=== PATIENT | male | born 1950 | race Caucasian/White ===

== ENCOUNTER 2019-04-10 08:39 | Outpatient (CLI) | payer OTHER | END 2019-04-10 23:59 | disposition home or self-care (01) | LOC: ROC 08:39 | PROVIDERS: ATTEND Radiology Radiation Oncology | DX: C61 Malignant neoplasm of prostate (principal); Z79.899 Other long term (current) drug therapy; Z88.0 Allergy status to penicillin | CPT/HCPCS: 99214; G0463 ==

== ENCOUNTER 2019-04-30 07:42 | Outpatient (CLI) | payer OTHER ==
[2019-04-30] MEDS ORDERED: LIDOCAINE/PF 1%, 30ML IV ONE (09:30)
[2019-04-30] MEDS ORDERED: MIDAZOLAM 1 MG/ML, 5ML IVPush ONE (09:30)
[2019-04-30] MEDS ORDERED: FENTANYL PF 100 MCG/2ML IVPush ONE (09:30)
== END 2019-04-30 23:59 | disposition home or self-care (01) ==
LOC: ROC 07:42
PROVIDERS: ATTEND Radiology Radiation Oncology
DX: C61 Malignant neoplasm of prostate (principal)
CPT/HCPCS: 55876; 76942; 77332; 99156; A4648; J2250; J3010; J3490; 77290; 77470

== ENCOUNTER → 2019-05-06 | Outpatient (CLI) | payer OTHER | END | disposition home or self-care (01) | LOC: CFH 11:00 | PROVIDERS: ATTEND Radiology Radiation Oncology | DX: C61 Malignant neoplasm of prostate (principal); I10 Essential (primary) hypertension | CPT/HCPCS: 72195 ==

== ENCOUNTER 2019-08-19 08:02 | Outpatient (CLI) | payer OTHER | END 2019-08-19 23:59 | disposition home or self-care (01) | LOC: ROC 08:02 | PROVIDERS: ATTEND Radiology Radiation Oncology | DX: C61 Malignant neoplasm of prostate (principal) | CPT/HCPCS: 99212; G0463 ==

== ENCOUNTER 2020-03-06 07:48 | Outpatient (CLI) | payer OTHER | END 2020-03-06 23:59 | disposition home or self-care (01) | LOC: ROC 07:48 | PROVIDERS: ATTEND Radiology Radiation Oncology | DX: C61 Malignant neoplasm of prostate (principal) | CPT/HCPCS: 99212; G0463 ==